=== PATIENT | female | born 1975 | race Caucasian/White ===

== ENCOUNTER 2021-11-12 13:51 | Outpatient (CLI) | payer OTHER, SELFPAY ==
--- NOTE | ~2021-11-12 | XR_ITS ---
XR foot RT min 3V 11/12/2021 14:16 Indication: Right foot pain Procedure: 4 views right foot Comparison: No prior studies for comparison. Findings: There is anatomic alignment. No fracture, subluxation or dislocation. Lisfranc joint intact . No significant soft tissue abnormality. No foreign bodies. No significant degenerative change. Impression: 1: No acute bone or joint abnormality. Reviewed, dictated and finalized at location B. Impression: 1: No acute bone or joint abnormality.
== END 2021-11-12 13:52 | disposition home or self-care (01) ==
PROVIDERS: Visit Provider Orthopaedic Surgery
DX: M79.671 Pain in right foot (principal)
CPT/HCPCS: 73630

== ENCOUNTER 2021-11-12 14:17 | Outpatient (CLI) | payer OTHER, SELFPAY ==
--- NOTE | ~2021-11-12 | MM_ITS ---
EXAMINATION: MM screening ronald BI w manuelito HISTORY: Screening mammogram TECHNIQUE: Craniocaudal and mediolateral oblique 3-D tomosynthesis images were obtained and synthetic 2-D images were generated. CAD analysis was submitted and interpreted. COMPARISON: No prior mammogram is available for comparison at this institution. BREAST PARENCHYMAL COMPOSITION: The breasts are extremely dense, which lowers the sensitivity of mamm ography. FINDINGS: Occasional bilateral benign microcalcifications. There is no evidence of suspicious mass, c alcification, or architectural distortion to suggest malignancy in either breast. There has been no s uspicious interval change. IMPRESSION: 1. No mammographic evidence of malignancy. 2. Recommend routine screening mammography in one year. BI-RADS Category 2: Benign finding(s). Reviewed, dictated and finalized at location A.
== END 2021-11-12 14:18 | disposition home or self-care (01) ==
LOC: ANHIMG 14:18
PROVIDERS: PCP Obstetrics & Gynecology; Visit Provider Obstetrics & Gynecology
DX: Z12.31 Encounter for screening mammogram for malignant neoplasm of breast (principal)
CPT/HCPCS: 77063; 77067

== ENCOUNTER 2022-04-01 12:22 | Outpatient (CLI) | payer OTHER, SELFPAY ==
--- NOTE | ~2022-04-01 | MR_ITS ---
EXAMINATION: MR foot RT wo con DATE: 04/01/2022 13:53 INDICATION: Right foot pain. TECHNIQUE: Magnetic resonance imaging (MRI) of the right foot was performed without intravenous contr ast. COMPARISON: Right foot radiographs 11/12/2021 FINDINGS: There is mild hallux valgus. No fracture. There is mild osteoarthritis of first metatarsoph alangeal joint. There is a small effusion of first metatarsophalangeal joint. Lisfranc ligament is no rmal. The flexor and extensor tendons are normal. There is soft tissue edema between the second and t hird proximal phalanges. IMPRESSION: 1. Soft tissue edema between the second and third proximal phalanges, consistent with inflammation. 2. Mild hallux valgus. 3. Mild osteoarthritis of first metatarsophalangeal joint. 4. Small effusion of first metatarsophalangeal joint. Reviewed, dictated and finalized at location A. SHOP SUPERVISOR IMPRESSION: 1. Soft tissue edema between the second and third proximal phalanges, consisten t with inflammation. 2. Mild hallux valgus. 3. Mild osteoarthritis of first metatarsophalangeal joint. 4. Small effusion of first metatarsophalangeal joint.
== END 2022-04-01 12:23 | disposition home or self-care (01) ==
PROVIDERS: PCP Obstetrics & Gynecology; Visit Provider Orthopaedic Surgery
DX: M19.071 Primary osteoarthritis, right ankle and foot (principal); M25.471 Effusion, right ankle; M20.11 Hallux valgus (acquired), right foot
CPT/HCPCS: 73718

== ENCOUNTER 2022-04-05 16:35 | Outpatient (CLI) | payer OTHER, SELFPAY ==
[2022-04-05 16:54] LABS: Basophils Absolute Auto 0.1 K/mm3 (0.0-0.1); Basophils Percent Auto 0.7 % (0.2-1.2); Eosinophils Absolute Auto 0.1 K/mm3 (0-0.3); Eosinophils Percent Auto 1.7 % (0-4.4); Hematocrit 38.1 % (37.0-47.0); Hemoglobin 12.5 g/dL (12.0-15.0); Immature Granulocyte Absolute 0.02 K/mm3 (0.00-0.031); Immature Granulocyte Percent A 0.3 % (0-0.5); Lymphocytes Absolute Auto 1.67 K/mm3 (0.9-3.2); Lymphocytes Percent Auto 23.4 % (18.3-44.2); Mean Corpuscular HGB Conc 32.8 g/dl (32-36); Mean Corpuscular Hemoglobin 30.8 pg (26-34); Mean Corpuscular Volume 93.8 fl (80-100); Mean Platelet Volume 8.9 fl (7.4-10.4); Monocytes Absolute Auto 0.6 K/mm3 (0.1-0.6); Monocytes Percent Auto 7.8 % (2.6-8.5); Neutrophils Absolute Auto 4.7 K/mm3 (1.3-6.7); Neutrophils Percent Auto 66.1 % (45.5-73.1); Platelet Count Result 277 k/mm3 (150-375); Red Blood Count 4.06 M/mm3 (4.2-5.4); Red Cell Distribution Width 12.3 % (11.5-14.5); White Blood Count 7.1 K/mm3 (4.5-10.0)
[2022-04-05 17:06] LABS: CRP < 0.5 mg/dL (<1.0); Uric Acid 3.1 mg/dL (2.5-7.5)
[2022-04-05 17:59] LABS: Rheumatoid Factor < 8.6 IU/ML (<12)
[2022-04-05 20:41] LABS: Erythrocyte Sedimentation Rate 11 mm/hr (0-20)
== END 2022-04-05 16:36 | disposition home or self-care (01) ==
LOC: ANHLAB 16:37
PROVIDERS: PCP Obstetrics & Gynecology; Visit Provider Orthopaedic Surgery
DX: M19.079 Primary osteoarthritis, unspecified ankle and foot (principal); M06.9 Rheumatoid arthritis, unspecified
CPT/HCPCS: 36415; 84550; 85025; 85652; 86038; 86039; 86140; 86430

== ENCOUNTER 2022-11-01 07:04 | Outpatient (CLI) | payer OTHER, SELFPAY ==
[2022-11-01 08:17] LABS: Alanine Aminotransferase 15 U/L (6-35); Albumin Level 4.2 g/dL (3.5-5.1); Alkaline Phosphatase 35 U/L (38-126); Anion Gap 7 mmol/L (8-16); Aspartate Amino Transferase 19 U/L (14-36); Bilirubin,Total 0.7 mg/dL (0.2-1.3); Blood Urea Nitrogen 13 mg/dL (7-17); Calcium 8.7 mg/dL (8.4-10.2); Carbon Dioxide 27 mmol/L (22-30); Chloride 104 mmol/L (98-107); Cholesterol 192 mg/dL (0-200); Estimated Glomerular Filt Rate > 60; Glucose 97 mg/dL (65-110); HDL Direct 67 mg/dL; Potassium 3.9 mmol/L (3.4-5.0); Sodium 138 mmol/L (137-145); Triglycerides 36 mg/dL (<150)
[2022-11-01 08:28] LABS: LDL Cholesterol Direct 84 mg/dL
[2022-11-01 09:25] LABS: Folic Acid 19.6 ng/mL (2.76->20)
== END 2022-11-01 07:05 | disposition home or self-care (01) ==
LOC: ANHLAB 07:05
PROVIDERS: PCP Physician Assistant; Visit Provider Physician Assistant
DX: Z00.00 Encounter for general adult medical examination without abnormal findings (principal)
CPT/HCPCS: 36415; 80053; 80061; 82607; 82746; 84443

== ENCOUNTER 2023-03-24 12:12 | Outpatient (CLI) | payer OTHER, SELFPAY ==
--- NOTE | ~2023-03-24 | MM_ITS ---
EXAMINATION: MM screening ronald BI w manuelito HISTORY: Screening mammogram TECHNIQUE: Craniocaudal and mediolateral oblique 3-D tomosynthesis images were obtained and synthetic 2-D images were generated. CAD analysis was submitted and interpreted. COMPARISON: 11/12/2021 bilateral screening mammogram BREAST PARENCHYMAL COMPOSITION: The breasts are extremely dense, which lowers the sensitivity of mamm ography. FINDINGS: There is no evidence of suspicious mass, calcification, or architectural distortion to sugg est malignancy in either breast. There has been no suspicious interval change. IMPRESSION: 1. No mammographic evidence of malignancy. 2. Recommend routine screening mammography in one year. BI-RADS Category 1: Negative Reviewed, dictated and finalized at location A. ER AND PACKER
== END 2023-03-24 12:13 | disposition home or self-care (01) ==
PROVIDERS: PCP Physician Assistant; Visit Provider Obstetrics & Gynecology
DX: Z12.31 Encounter for screening mammogram for malignant neoplasm of breast (principal)
CPT/HCPCS: 77063; 77067

== ENCOUNTER 2024-07-23 14:00 | Outpatient (CLI) | payer OTHER, SELFPAY ==
--- NOTE | ~2024-07-23 | MM_ITS ---
EXAMINATION: MM screening ronald BI w manuelito HISTORY: Screening TECHNIQUE: Craniocaudal and mediolateral oblique 3-D tomosynthesis images were obtained and synthetic 2-D images were generated. CAD analysis was submitted and interpreted. COMPARISON: Comparison to multiple prior studies sequentially, with oldest reviewed study dated 11/12. BREAST PARENCHYMAL COMPOSITION: Dense: The breasts are extremely dense, which lowers the sensitivity of mammography. FINDINGS: There is no evidence of suspicious mass, calcification, or architectural distortion to sugg est malignancy in either breast. There has been no suspicious interval change. IMPRESSION: 1. No mammographic evidence of malignancy. 2. Recommend routine screening mammography in one year. BI-RADS Category 1: Negative Reviewed, dictated and finalized at location A.
--- OUTSIDE RECORDS SUMMARY | 2024-07-23 15:19 | XMS_ITS | Clinical Summary ---
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 Role Phone Unavailable Primary Care Provider Unavailabl e Immunizations Immunization Administration Dates Next Due MODERNA COVID-19 (12+) MRNA, LNP-S, PF, 100 MCG/ 0.5 ML DOSE 04/22/2020,03/25/2020 Social History Tobacco Use Types Packs/Day Years Used Date Smoking Tobacco: Never Assessed Comments Unknown Sex and Gender Information Value Date Recorded Sex Assigned at Not on file Legal Sex Female 7:58 PM CDT Gender Identity Not on file Sexual Orientation Not on file Plan of Treatment Health Maintenance Due Date Last Done Comments Cervical Cancer Screening Pa p Smear (Age 30 to 64) Every 3 Years 1976 Colorectal Cancer Screening Colonoscopy (10 Years) 1976 Annual Physical 1979 Hepatitis C 1994 DTaP, Tdap and Td Vaccines ( 1 - Tdap) 1995 Hepatitis B Vaccines (1 of 3 - 19+ 3-dose series) 1995 Cervical Cancer Screening Pa p with HPV Testing (Age 30 to 64) Every 5 Years 2006 Cervical Cancer Screening wi HPV 2006 Mammogram Screening 2016 COVID-19 Vaccine (3 - 2023-2 5 season) 2023 04/22/2020, 03/25/2020 Meningococcal B Vaccine Aged Out No l onger eligible based on patient's age to complete this topic Meningococcal Vaccine Aged Out No augustine chiara eligible based on patient's age to complete this topic Pneumococcal Vaccine: Pediatrics (0 to 5 Years) and At-Risk Patients (6 to 49 Years) Aged Out No longer eligible b ased on patient's age to complete this topic RSV Immunizations Under 20 Months Aged Out No longer eligible b ased on patient's age to complete this topic
== END 2024-07-23 14:01 | disposition home or self-care (01) ==
PROVIDERS: PCP Internal Medicine; Visit Provider Obstetrics & Gynecology
DX: Z12.31 Encounter for screening mammogram for malignant neoplasm of breast (principal)
CPT/HCPCS: 77063; 77067

== ENCOUNTER 2024-10-29 16:10 | Outpatient (CLI) | payer OTHER, SELFPAY ==
--- NOTE | ~2024-10-29 | XR_ITS ---
AP and oblique views of the SI joints Clinical history: pain FINDINGS: SI joints are unremarkable. Hip joints are unremarkable. No fracture or dislocation. Soft t issues are unremarkable. IMPRESSION: Unremarkable exam. Reviewed, dictated and finalized at location M. IMPRESSION: Unremarkable exam.
--- NOTE | ~2024-10-29 | XR_ITS ---
Right Knee Technique: AP and lateral views were obtained. Clinical History: Pain Findings: No fracture or dislocation is seen. Osseous alignment is anatomic. Joint spaces are preserv ed without degenerative or erosive change. Soft tissues are unremarkable. No joint effusion is seen. Impression: Unremarkable right knee radiographs. Reviewed, dictated and finalized at location . Impression: Unremarkable right knee radiographs.
--- NOTE | ~2024-10-29 | XR_ITS ---
Left wrist Technique: PA and lateral views were obtained. Clinical History: Pain Findings: No acute fracture or dislocation is seen. Osseous alignment is anatomic. Joint spaces are p reserved. Soft tissues are unremarkable. Impression: Unremarkable left wrist radiographs. Reviewed, dictated and finalized at location M. Impression: Unremarkable left wrist radiographs.
--- NOTE | ~2024-10-29 | XR_ITS ---
Left Knee Technique: AP and lateral views were obtained. Clinical History: Pain Findings: No fracture or dislocation is seen. Osseous alignment is anatomic. Joint spaces are preserv ed without degenerative or erosive change. Soft tissues are unremarkable. No joint effusion is seen. Impression: Unremarkable left knee radiographs. Reviewed, dictated and finalized at location . Impression: Unremarkable left knee radiographs.
--- NOTE | ~2024-10-29 | XR_ITS ---
Right wrist Technique: PA and lateral views were obtained. Clinical History: Pain Findings: No acute fracture or dislocation is seen. Osseous alignment is anatomic. Joint spaces are p reserved. Soft tissues are unremarkable. Impression: Unremarkable right wrist radiographs. Reviewed, dictated and finalized at location M. Impression: Unremarkable right wrist radiographs.
--- NOTE | ~2024-10-29 | XR_ITS ---
Left Hand Technique: PA and lateral views were obtained. Clinical History: Pain Findings: No acute fracture or dislocation is seen. Osseous alignment is anatomic. Joint spaces are p reserved. Soft tissues are unremarkable. Impression: Unremarkable left hand. Reviewed, dictated and finalized at location M. Impression: Unremarkable left hand.
--- NOTE | ~2024-10-29 | XR_ITS ---
EXAMINATION: XR ankle LT 2V, XR ankle RT 2V, XR foot LT 2V, XR foot RT 2V DATE: 10/29/2024 16:57 INDICATION: Multiple joint pain TECHNIQUE: 1. Anteroposterior and lateral view of the left ankle were obtained. 2. Dorsoplantar and lateral views of the left foot were obtained. 3. Anteroposterior and lateral view of the right ankle were obtained. 2. Dorsoplantar and lateral views of the right foot were obtained. COMPARISON: None. FINDINGS: Left foot and ankle: Mild hallux valgus with hypertrophic change and small heterotopic ossicle at the medial side of the b ase of the first proximal phalanx. There is mild osteoarthritis at the first metatarsophalangeal join t. Alignment of the left foot and ankle is otherwise normal. No fracture. Joint spaces are otherwise well maintained. No erosions to suggest inflammatory arthritis. No ankle joint effusion. The soft tis sues are unremarkable. Right foot and ankle: Alignment of the foot and ankle is normal. No fracture or osteochondral lesion. Joint spaces are well maintained. No erosions to suggest inflammatory arthritis. No ankle joint effusion. The soft tissues are unremarkable. IMPRESSION: 1. Mild left hallux valgus with mild osteoarthritis at the first metatarsophalangeal joint. 2. Negative right foot and ankle radiographs. Reviewed, dictated and finalized at location A. IMPRESSION: 1. Mild left hallux valgus with mild osteoarthritis at the first metatarsophala ngeal joint. 2. Negative right foot and ankle radiographs. IMPRESSION: 1. Mild left hallux valgus with mild osteoarthritis at the first metatarsophala ngeal joint. 2. Negative right foot and ankle radiographs. IMPRESSION: 1. Mild left hallux valgus with mild osteoarthritis at the first metatarsophala ngeal joint. 2. Negative right foot and ankle radiographs.
--- NOTE | ~2024-10-29 | XR_ITS ---
Right Hand Technique: PA and lateral views were obtained. Clinical History: Pain Findings: No acute fracture or dislocation is seen. Osseous alignment is anatomic. Joint spaces are p reserved. Soft tissues are unremarkable. Impression: Unremarkable right hand. Reviewed, dictated and finalized at location M. Impression: Unremarkable right hand.
== END 2024-10-29 16:11 | disposition home or self-care (01) ==
LOC: MICIMG 16:12
PROVIDERS: PCP Internal Medicine; Visit Provider Internal Medicine
DX: M20.12 Hallux valgus (acquired), left foot (principal); M19.072 Primary osteoarthritis, left ankle and foot
CPT/HCPCS: 72202; 73100; 73120; 73560; 73600; 73620